=== PATIENT | male | born 1975 | race Caucasian/White ===

== ENCOUNTER 2017-06-28 13:45 | Emergency (ER) | payer OTHER ==
[~2017-06-28] VITALS: Ht 170.2 cm; Wt 154.2 kg
[~2017-06-28 13:45] MED LIST: CARVEDILOL25 MG PO; COMFORT PAC-MEL15 MG; HYDRALAZINE 2525 MG; HYDROCODON-ACE1 EAC7 PO; LOSARTAN-HCTZ1 EAC3; METFORMIN HCL500 MG PO; OMEPRAZOLE40 MG PO; TIZANIDINE HCL4 M1; TRIAMCINOLONE A80 G2 TOP; ZOFRAN ODT4 MG PO
[2017-06-28 14:23] LABS: ABSOLUTE EOSINOPHILS 0.2 thou/uL (0.0-0.7); ABSOLUTE LYMPHOCYTES 2.4 thou/uL (0.8-5.3); ABSOLUTE MONOCYTES 0.9 thou/uL (0.0-1.2); ABSOLUTE NEUTROPHILS 6.5 thou/uL (1.6-8.1); BASOPHILS 0.4 %; EOSINOPHILS 1.9 %; HEMOGLOBIN 14.8 gm/dL (14.0-18.0); LYMPHOCYTES 23.7 %; MCH 28.1 pg (26.0-34.0); MCHC 33.6 g/dL (28.0-37.0); MCV 83.8 fL (80.0-100.0); MONOCYTES 9.1 %; MPV 7.9 fl. (7.2-11.1); NUCLEATED RBCS 0 /100WBC; PLATELET COUNT* 231 thou/uL (150-400); POLYS 64.9 %; RBC 5.25 mil/uL (4.50-6.00); RDW-CV 14.8 % (10.5-14.5)
[2017-06-28 14:34] LABS: ANION GAP 8 mmol/L (7-16); BUN 13 mg/dL (7-18); CALCIUM 8.4 mg/dL (8.5-10.1); CHLORIDE 103 mmol/L (98-107); CO2 30 mmol/L (21-32); CREATININE 0.9 mg/dL (0.6-1.3); GLUCOSE 96 mg/dL (70-99); POTASSIUM 3.7 mmol/L (3.5-5.1); SODIUM 141 mmol/L (136-145)
[2017-06-28 14:41] LABS: ALBUMIN 3.5 g/dL (3.4-5.0); ALKALINE PHOSPHATASE 86 U/L (46-116); LIPASE 299 U/L (73-393); SGOT 13 U/L (15-37); SGPT 16 U/L (30-65); TOTAL BILIRUBIN 0.4 mg/dL (<0.1-1.0); TOTAL PROTEIN 7.7 g/dL (6.4-8.2); TROPONIN-I LEVEL <0.06 ng/mL (<0.06)
[2017-06-28] MEDS ORDERED: KEFLEX500 M1 PO (15:50)
[2017-06-28 15:56] VITALS: BP 125/81
--- NOTE | 2017-06-28 16:38 | EKG ---
[place] [address] ELECTROCARDIOGRAM REPORT Name: KATIE CAMARENA [id number] Admission: 06/28/17 Attend Phys: Discharge: 06/28/17 Date of : 75 Report #: [id number] THIS REPORT FOR: //name// [facility] ED Test Date: 2017-06-28 Test Time: 13:54:02 Pat Name: KATIE CAMARENA Department: Room: Gender: M [employer]: STUDENT : 1975 Requested By: Rosemarie Bobby Order Number: [id number] MD: Clem August Measurements Intervals [place] Rate: 96 P: 28 DC: 175 QRS: 3 QRSD: 78 T: 16 QT: 328 QTc: 415 Interpretive Statements Sinus rhythm Atrial premature complex Compared to ECG 01/21/2017 08:47:10 Atrial premature complex(es) now present Electronically Signed On 06-28-2017 16:38:25 [employer] INSER[employer] by Clem August [email or web address] <ELECTRONICALLY SIGNED> By: Clem August MD, [facility] 06/28/17 [id number] Clem August MD, FACC /EPI
== END 2017-06-28 16:05 | disposition home or self-care (01) ==
LOC: M.ERS 13:45
PROVIDERS: Physician Assistant
DX: R00.2 Palpitations (principal); J02.9 Acute pharyngitis, unspecified; I10 Essential (primary) hypertension; E11.9 Type 2 diabetes mellitus without complications; F17.210 Nicotine dependence, cigarettes, uncomplicated; Z86.73 Personal history of transient ischemic attack (TIA), and cerebral infarction without residual deficits; Z88.8 Allergy status to other drugs, medicaments and biological substances